=== PATIENT | female | born 1970 | race Caucasian/White ===

== ENCOUNTER → 2018-08-03 | Outpatient (REF) ==
--- NOTE | 2018-08-04 08:40 | RADIOLOGY IMAGING REPORT ---
FACILITY: [facility] - [place] PATIENT NAME: CHRIS AVELAR : [id number] MR: [id number] V: [id number] EXAM DATE: [id number] ORDERING PHYSICIAN: NURIA CARBAJAL TECHNOLOGIST: Ivory Milan PROCEDURE:BILATERAL DIGITAL SCREENING MAMMOGRAM WITH CAD ASSISTED INTERPRETATION COMPARISON:Prior mammogram 04/23/10. INDICATIONS:SCREENING FINDINGS: The breasts are extremely dense which lowers the sensivity of mammography. The parenchymal pattern has remained relatively unchanged allowing for difference in mammographic technique & patient positioning. DIAGNOSTIC CATEGORY 1--NEGATIVE. RECOMMENDATIONS: ROUTINE MAMMOGRAM AND CLINICAL EVALUATION. IMPRESSION: BIRADS 1: Negative. No significant abnormality is seen. Dictated by: Ashwini Waters M.D. on 08/03/2018 at 15:41 Transcribed by: SHAYNE on 08/03/2018 at 15:47 Approved by: Ashwini Waters M.D. on 08/04/2018 at 8:39 [facility]
== END ==
LOC: MAMO 01:42
PROVIDERS: ATTEND Family Medicine
DX: Z12.31 Encounter for screening mammogram for malignant neoplasm of breast (principal)
CPT/HCPCS: 77067